=== PATIENT | male | born 2000 | race Caucasian/White ===

== ENCOUNTER 2020-07-03 21:01 | Emergency (ER) | payer OTHER ==
[~2020-07-03] VITALS: Ht 180.3 cm; Wt 81.7 kg
[~2020-07-03 21:01] MED LIST: ALBU90OI; ALBU90OI INH; AMOCLA250 PO; AMOX250CH PO; AMOX50SU PO; AMOXICILLIN; MONT4; MULTCH
[2020-07-04] MEDS ORDERED: IBU800 MG PO (16:33)
[2020-07-07] MEDS ORDERED: HYDR1TAB94 PO ×2 (08:55)
== END 2020-07-03 22:57 | disposition home or self-care (01) ==
LOC: ER 21:01
DX: S50.02XA Contusion of left elbow, initial encounter (principal); V00.131A Fall from skateboard, initial encounter
CPT/HCPCS: 29105; 73060; 73090; 96372-59; 99283-25; J1885

== ENCOUNTER 2020-07-04 14:29 | Emergency (ER) | payer OTHER ==
[~2020-07-04] VITALS: Ht 180.3 cm; Wt 81.7 kg
[2020-07-04] MEDS ORDERED: IBU800 MG PO (16:33)
[2020-07-07] MEDS ORDERED: HYDR1TAB94 PO ×2 (08:55)
== END 2020-07-04 16:42 | disposition home or self-care (01) ==
LOC: ER 14:29
DX: S52.122A Displaced fracture of head of left radius, initial encounter for closed fracture (principal); W18.30XA Fall on same level, unspecified, initial encounter
CPT/HCPCS: 73080; 99282-25

== ENCOUNTER 2020-09-17 20:15 | Emergency (ER) | payer OTHER ==
[~2020-09-17] VITALS: Ht 180.3 cm; Wt 77.1 kg
[~2020-09-17 20:15] MED LIST changes: +HYDR1TAB94 PO; +IBU800 MG PO
[2020-09-17] MEDS ORDERED: CYCL10 PO (22:18)
[2020-09-17] MEDS ORDERED: IBUP600 PO (22:18)
== END 2020-09-17 22:32 | disposition home or self-care (01) ==
LOC: ER 20:15
DX: S09.90XA Unspecified injury of head, initial encounter (principal); S30.0XXA Contusion of lower back and pelvis, initial encounter; V47.5XXA Car driver injured in collision with fixed or stationary object in traffic accident, initial encounter; Y92.410 Unspecified street and highway as the place of occurrence of the external cause
CPT/HCPCS: 36415; 70450; 71045; 71260; 74177; 93005; 93010; 99285-25; Q9967

== ENCOUNTER → 2021-08-14 | Outpatient (CLI) | payer OTHER ==
[~2021-08-14] MED LIST changes: +CYCL10 PO; +IBUP600 PO
[2021-08-15 21:10] LABS: HSV 1 NAA Negative (Negative); HSV 2 NAA Negative (Negative)
[2021-08-16 01:11] LABS: CHLAMYDIA TRACHOMATIS, NAA Negative (Negative)
== END | disposition home or self-care (01) ==
LOC: LAB 11:45 → LAB SHORT 11:45
PROVIDERS: Nurse Practitioner
DX: B37.42 Candidal balanitis (principal)
CPT/HCPCS: 87491; 87529; 87591